=== PATIENT | female | born 1975 | race Caucasian/White ===

== ENCOUNTER 2020-11-21 11:34 | Outpatient (REF) | payer SELFPAY ==
--- NOTE | ~2020-11-21 | MM_ITS ---
EXAMINATION: MM SCREENING DIGITAL BREAST TOMOSYNTHESIS, BILATERAL CLINICAL INFORMATION: Screening. Asymptomatic. The lifetime risk of breast cancer based on the Tyrer-Cuzick Model is 11%. COMPARISON: Mammography: 11/15/2019, 11/08/2018 (baseline). TECHNIQUE: Digital breast tomosynthesis is performed in both the craniocaudal and mediolateral oblique views along with computer-aided detection (CAD). Synthesized 2D images are generated from the tomosynthesis. FINDINGS: There are scattered areas of fibroglandular density (ACR BI-RADS breast composition Category b). There are no significant masses, abnormal calcifications, or other abnormalities. No developing density. Parenchymal pattern similar to prior exams. MM/MM tomosynthesis screening BI IMPRESSION: No mammographic evidence of malignancy. ASSESSMENT: BI-RADS 1: Negative RECOMMENDATION: Routine annual mammography screening. This patient's information was entered into a reminder system with a target due date for their next mammogram.
== END 2020-11-21 11:35 | disposition home or self-care (01) ==
LOC: HO.MAMMO 11:34
PROVIDERS: Visit Provider Internal Medicine
DX: Z12.31 Encounter for screening mammogram for malignant neoplasm of breast (principal)
CPT/HCPCS: 77063; 77067

== ENCOUNTER 2021-05-04 12:46 | Outpatient (REF) | payer OTHER, SELFPAY ==
[2021-05-04 14:43] LABS: Alanine Aminotransferase 12 U/L (0-31); Anion Gap 13 (12-20); Aspartate Amino Transferase 21 U/L (5-31); Blood Urea Nitrogen 13 mg/dL (9-16); Calcium 9.1 mg/dL (8.4-10.2); Carbon Dioxide 23 mmol/L (22-29); Chloride 108 mmol/L (96-108); Cholesterol 213 mg/dL; Estimated Glomerular Filt Rate > 60; Glucose Fasting 76 mg/dL (60-99); HDL Cholesterol 63 mg/dL; LDL Cholesterol Calculated 132 mg/dl; Potassium 4.7 mmol/L (3.3-5.1); Sodium 139 mmol/L (135-145); Triglycerides 91 mg/dL
[2021-05-04 15:02] LABS: Vitamin D 25-OH Total 36.2 ng/mL (>30)
[2021-05-04 15:18] LABS: Folate 7.4 ng/mL (> or = 4.0); Vitamin B12 320 pg/mL (200-900)
[2021-05-05 08:37] LABS: HBc Num1 0.06 S/CO (0.00-0.79); HBsAGNum1 0.21 S/CO (0.00-0.99); Hepatitis B Core Antibody Nonreactive (Nonreactive); Hepatitis B Surface Antigen Negative (Negative); ~Hepatitis C Antibody Nonreactive (Nonreactive)
[2021-05-05 08:44] LABS: HBS Num1 > 1000.00 mIU/mL (0-7.99); HIV AB/AG Nonreactive (Nonreactive); HIV Num 1 0.06 S/CO (0.00-0.99); ~Hepatitis B Surface Antibody REACTIVE (Nonreactive)
[2021-05-09 16:17] LABS: HSV 1 IgM IFA Negative (Negative); HSV 2 IgM IFA Negative (Negative)
== END 2021-05-04 12:47 | disposition home or self-care (01) ==
LOC: HO.HMGCLDS 12:46
PROVIDERS: PCP Internal Medicine; Visit Provider Internal Medicine
DX: O24.419 Gestational diabetes mellitus in pregnancy, unspecified control (principal); O10.919 Unspecified pre-existing hypertension complicating pregnancy, unspecified trimester; Z86.19 Personal history of other infectious and parasitic diseases
CPT/HCPCS: 36415; 80048; 80061; 82306; 82607; 82746; 84450; 84460; 86695; 86696; 86704; 86706; 86803; 87340; 87389

== ENCOUNTER 2021-10-12 22:13 | Emergency (ER) | payer OTHER, SELFPAY ==
[2021-10-12 22:16] VITALS: BP 134/89; PULSE 65; RESP 20; TEMP 36.1; O2SAT 98; BMI 27.3
--- NOTE | 2021-10-12 22:40 | ED.PSYCH ---
HPI - Psych General Chief Complaint: Psychiatric Symptoms Stated Complaint: Crisis Source: patient Mode of arrival: ambulatory Limitations: no limitations History of Present Illness HPI Narrative: 46-year-old female presents for crisis evaluation. States that she relapsed after 20 months of being sober. Has been drinking alcohol, at least 10 drinks per day. Has had suicidal thoughts and severe depression for the past few months. MD complaint: suicidal ideation, feels depressed, anxiety and alcohol abuse Onset (ago): month(s) Duration: constant History of same: Yes Relieving factors: none Exacerbating factors: alcohol Context: recent alcohol abuse Associated psychiatric symptoms: depression and suicidal ideation Associated symptoms: denies other symptoms Treatments prior to arrival: none If self harm: admits thoughts of self harm Related Data Home Medications Medication Instructions Recorded Confirmed escitalopram oxalate 20 mg tablet 20 mg PO DAILY 05/04/21 10/12/21 Allergies Allergy/AdvReac Type Severity Reaction Status Date / Time No Known Allergies Allergy Verified 10/12/21 22:23 Review of Systems Review of Systems: Constitutional: No Fever, No Chills ENT/Mouth: No Ear Pain, No Nasal Congestion, No sore throat Eyes: No Eye Pain, No Swelling, No Redness Cardiovascular: No Chest Pain, No SOB Respiratory: No Cough, No Sputum, No Dyspnea Gastrointestinal: No Nausea, No Vomiting, No Diarrhea, No Hematochezia, No Melena Genitourinary: No Dysuria, No Urinary Frequency, No Hematuria Musculoskeletal: No Myalgias Skin: No Skin Lesions, No rash Neuro: No Weakness, No Numbness, No Paresthesias, No Dizziness, No Headache Psych: positive Anxiety, positive Depression, positive SI, positive alcohol abuse Heme/Lymph: No Lymphadenopathy Endocrine: No Polyuria, No Polydipsia Yes all other systems are reviewed and are negative [facility], [facility] Past Medical History Attestation statement: The following information was validated with the patient. Source: old records reviewed Medical History Alcohol abuse Bartholin gland cyst Depression Generalized anxiety disorder Gestational diabetes H/O cold sores Surgical History History of thyroglossal duct cyst removal Family History Family History Father Substance use disorder Mental health disorder Maternal Aunt Substance use disorder Mental health disorder Maternal Uncle Substance use disorder Mental health disorder Paternal Aunt Substance use disorder Mental health disorder Paternal Uncle Substance use disorder Mental health disorder Mother Mental health disorder Sister Mental health disorder Social History Social History Housing: House Patient Tobacco Use Status: Former Tobacco user Years Smoked: 3 yrs e-Cigarette/Vaping Use: Never Used Second Hand Smoke Exposure: No Advance Directives: No Advance Directives Information Provided: Yes Patient : No service: No Current occupational status: employed Current occupation: special education Current occupational exposures/hazards: No Physical Exam Vital Signs: Vital Signs: Last Vital Signs Temp 96.9 F 10/12/21 22:16 Pulse 65 10/12/21 22:16 Resp 20 10/12/21 22:16 BP 134/89 10/12/21 22:16 Pulse Ox 98 10/12/21 22:16 BMI result Body Mass Index 27.3 Appearance: Alert. Oriented X3. Moderate emotional distress. Crying. Eyes: Pupils equal, round and reactive to light. No nystagmus. Sclerae nonicteric. EOMI. ENT: Pharynx normal. Moist mucous membranes. Neck: Normal inspection. Neck supple. No JVD. CVS: Normal heart rate and rhythm. Apical pulses with focal to extremities. Respiratory: No respiratory distress. Breath sounds normal. Abdomen: Soft and nontender. Skin: Skin warm and dry. Normal skin color. Normal skin turgor. Extremities: No lower extremity edema. Gait well-balanced well coordinated. Neuro: No motor deficit. No sensory deficit. Cranial nerves 2-12 intact. Course Course Course Narrative: 46-year-old female presents for crisis evaluation for alcohol abuse, suicidal ideation, severe depression. States that she had been sober for 20 months, relapsed has been drinking approximately 10 drinks per day. Patient denies withdrawal symptoms, denies withdrawal seizures in the past. At this time severely depressed, can not stop crying, has concerns about her children watching her drink alcohol and being drunk. Will draw labs, EtOH, COVID, order for crisis consult. Section 12 at this time. 12:42 a.m. labs are unremarkable. Alcohol 211. Will place under physician observation at this time. Care team consult pending. MDM - Psych Differential Diagnosis Differential diagnosis: Likely suicidal ideation and alcohol intoxication Medical Records Attestation: I reviewed the patient's medical records. Lab Data Attestation: I reviewed the patient's lab results. Result diagrams: 10/12/21 23:43 10/12/21 23:43 Labs: Lab Results 10/12/21 10/12/21 10/12/21 Range/Units 22:33 23:19 23:19 WBC (4.8-10.8) X10*3/uL RBC (4.20-5.50) X10*6/uL Hgb (12.0-16.0) g/dl Hct (37.0-47.0) % MCV (80.0-98.0) fL MCH (27.0-33.0) pg MCHC (31.0-35.0) g/dl RDW (11.0-16.0) % Plt Count (160-400) X10*3/uL MPV (9.4-12.3) fL Immature Gran % (Auto) (0.0-0.4) % Neut % (Auto) (45-73) % Lymph % (Auto) (20-40) % [place] % (Auto) (2-11) % Eos % (Auto) (0-4) % Baso % (Auto) (0-2) % Lymph # (Auto) (1.2-4.9) X10*3/uL [place] # (Auto) (0.1-1.2) X10*3/uL Eos # (Auto) (0.0-0.4) X10*3/uL Baso # (Auto) (0.0-0.2) X10*3/uL Abs Immat Gran (auto) (0.00-0.03) X10*3/uL Absolute Neuts (auto) (2.0-8.3) x10*3/uL Absolute Nucleated RBC (0.0-0.012) X10*3/uL Nucleated RBC % (auto) (0.0-0.2) /100WBC Sodium (135-145) mmol/L Potassium (3.3-5.1) mmol/L Chloride (96-108) mmol/L Carbon Dioxide (22-29) mmol/L Anion Gap (12-20) BUN (9-16) mg/dL Creatinine (0.5-1.4) mg/dL Estim Creat Clear Calc Estimated GFR Random Glucose (60-115) mg/dL Calcium (8.4-10.2) mg/dL Total Bilirubin (0.0-1.0) mg/dL Direct Bilirubin (0.0-0.5) mg/dL AST (5-31) U/L ALT (0-31) U/L Alkaline Phosphatase (39-117) U/L Total Protein (6.5-8.0) g/dL Albumin (3.5-5.0) g/dL Lipase (8-78) U/L Urine Color STRAW Urine Appearance CLEAR Urine pH 5.5 (5.0-8.0) Ur Specific [place] <= 1.005 (1.005-1.025) Urine Protein NEG (NEG-TRACE) MG/DL Urine Glucose (UA) NEG (NEG) MG/DL Urine Ketones NEG (NEG) MG/DL Urine Blood NEG (NEG) Urine Nitrite NEG (NEG) Ur Leukocyte Esterase NEG (NEG) Urine RBC 0 (0) /HPF Urine WBC 0 (0-4) /HPF Ur Squamous Epith Cells TRACE /LPF Urine Bacteria NONE /LPF Urine Mucus TRACE /LPF Salicylates (15-30) mg/dL Urine Opiates Screen Not Detected (Not Detect) Urine Fentanyl Screen Not Detected (Not Detect) Acetaminophen (<30) mcg/mL Ur Barbiturates Screen Not Detected (Not Detect) Ur Phencyclidine Scrn Not Detected (Not Detect) Ur Amphetamines Screen Not Detected (Not Detect) U Benzodiazepines Scrn Not Detected (Not Detect) Urine Cocaine Screen Not Detected (Not Detect) U Marijuana (THC) Screen Not Detected (Not Detect) Ethyl Alcohol mg/dL COVID-19 ([facility]) Negative (Negative) COVID-19 Clin Com See Note 10/12/21 10/12/21 10/12/21 Range/Units 23:42 23:43 23:43 WBC 6.9 (4.8-10.8) X10*3/uL RBC 4.19 L (4.20-5.50) X10*6/uL Hgb 12.6 (12.0-16.0) g/dl Hct 38.5 (37.0-47.0) % MCV 91.9 (80.0-98.0) fL MCH 30.1 (27.0-33.0) pg MCHC 32.7 (31.0-35.0) g/dl RDW 13.6 (11.0-16.0) % Plt Count 330 (160-400) X10*3/uL MPV 10.5 (9.4-12.3) fL Immature Gran % (Auto) 0.4 (0.0-0.4) % Neut % (Auto) 50.4 (45-73) % Lymph % (Auto) 37.9 (20-40) % [place] % (Auto) 8.4 (2-11) % Eos % (Auto) 2.5 (0-4) % Baso % (Auto) 0.4 (0-2) % Lymph # (Auto) 2.6 (1.2-4.9) X10*3/uL [place] # (Auto) 0.6 (0.1-1.2) X10*3/uL Eos # (Auto) 0.2 (0.0-0.4) X10*3/uL Baso # (Auto) 0.0 (0.0-0.2) X10*3/uL Abs Immat Gran (auto) 0.03 (0.00-0.03) X10*3/uL Absolute Neuts (auto) 3.5 (2.0-8.3) x10*3/uL Absolute Nucleated RBC 0.000 (0.0-0.012) X10*3/uL Nucleated RBC % (auto) 0.0 (0.0-0.2) /100WBC Sodium (135-145) mmol/L Potassium (3.3-5.1) mmol/L Chloride (96-108) mmol/L Carbon Dioxide (22-29) mmol/L Anion Gap (12-20) BUN (9-16) mg/dL Creatinine (0.5-1.4) mg/dL Estim Creat Clear Calc Estimated GFR Random Glucose (60-115) mg/dL Calcium (8.4-10.2) mg/dL Total Bilirubin (0.0-1.0) mg/dL Direct Bilirubin (0.0-0.5) mg/dL AST (5-31) U/L ALT (0-31) U/L Alkaline Phosphatase (39-117) U/L Total Protein (6.5-8.0) g/dL Albumin (3.5-5.0) g/dL Lipase (8-78) U/L Urine Color Urine Appearance Urine pH (5.0-8.0) Ur Specific [place] (1.005-1.025) Urine Protein (NEG-TRACE) MG/DL Urine Glucose (UA) (NEG) MG/DL Urine Ketones (NEG) MG/DL Urine Blood (NEG) Urine Nitrite (NEG) Ur Leukocyte Esterase (NEG) Urine RBC (0) /HPF Urine WBC (0-4) /HPF Ur Squamous Epith Cells /LPF Urine Bacteria /LPF Urine Mucus /LPF Salicylates < 5.0 L (15-30) mg/dL Urine Opiates Screen (Not Detect) Urine Fentanyl Screen (Not Detect) Acetaminophen < 1 (<30) mcg/mL Ur Barbiturates Screen (Not Detect) Ur Phencyclidine Scrn (Not Detect) Ur Amphetamines Screen (Not Detect) U Benzodiazepines Scrn (Not Detect) Urine Cocaine Screen (Not Detect) U Marijuana (THC) Screen (Not Detect) Ethyl Alcohol 211 mg/dL COVID-19 ([facility]) (Negative) COVID-19 Clin Com 10/12/21 Range/Units 23:43 WBC (4.8-10.8) X10*3/uL RBC (4.20-5.50) X10*6/uL Hgb (12.0-16.0) g/dl Hct (37.0-47.0) % MCV (80.0-98.0) fL MCH (27.0-33.0) pg MCHC (31.0-35.0) g/dl RDW (11.0-16.0) % Plt Count (160-400) X10*3/uL MPV (9.4-12.3) fL Immature Gran % (Auto) (0.0-0.4) % Neut % (Auto) (45-73) % Lymph % (Auto) (20-40) % [place] % (Auto) (2-11) % Eos % (Auto) (0-4) % Baso % (Auto) (0-2) % Lymph # (Auto) (1.2-4.9) X10*3/uL [place] # (Auto) (0.1-1.2) X10*3/uL Eos # (Auto) (0.0-0.4) X10*3/uL Baso # (Auto) (0.0-0.2) X10*3/uL Abs Immat Gran (auto) (0.00-0.03) X10*3/uL Absolute Neuts (auto) (2.0-8.3) x10*3/uL Absolute Nucleated RBC (0.0-0.012) X10*3/uL Nucleated RBC % (auto) (0.0-0.2) /100WBC Sodium 140 (135-145) mmol/L Potassium 3.8 (3.3-5.1) mmol/L Chloride 110 H (96-108) mmol/L Carbon Dioxide 20 L (22-29) mmol/L Anion Gap 14 (12-20) BUN 11 (9-16) mg/dL Creatinine 0.72 (0.5-1.4) mg/dL Estim Creat Clear Calc 86.5 Estimated GFR > 60 Random Glucose 86 (60-115) mg/dL Calcium 8.7 (8.4-10.2) mg/dL Total Bilirubin 0.3 (0.0-1.0) mg/dL Direct Bilirubin 0.2 (0.0-0.5) mg/dL AST 20 (5-31) U/L ALT 17 (0-31) U/L Alkaline Phosphatase 45 (39-117) U/L Total Protein 6.5 (6.5-8.0) g/dL Albumin 4.0 (3.5-5.0) g/dL Lipase 20 (8-78) U/L Urine Color Urine Appearance Urine pH (5.0-8.0) Ur Specific [place] (1.005-1.025) Urine Protein (NEG-TRACE) MG/DL Urine Glucose (UA) (NEG) MG/DL Urine Ketones (NEG) MG/DL Urine Blood (NEG) Urine Nitrite (NEG) Ur Leukocyte Esterase (NEG) Urine RBC (0) /HPF Urine WBC (0-4) /HPF Ur Squamous Epith Cells /LPF Urine Bacteria /LPF Urine Mucus /LPF Salicylates (15-30) mg/dL Urine Opiates Screen (Not Detect) Urine Fentanyl Screen (Not Detect) Acetaminophen (<30) mcg/mL Ur Barbiturates Screen (Not Detect) Ur Phencyclidine Scrn (Not Detect) Ur Amphetamines Screen (Not Detect) U Benzodiazepines Scrn (Not Detect) Urine Cocaine Screen (Not Detect) U Marijuana (THC) Screen (Not Detect) Ethyl Alcohol mg/dL COVID-19 ([facility]) (Negative) COVID-19 Clin Com Discharge Plan Discharge Clinical Impression: Suicidal ideation, Alcohol abuse Depression Qualifiers: Depression Type: major depressive disorder Major depression recurrence: recurrent Active/Remission status: currently active Major depression episode severity: severe Psychotic features: with psychotic features Qualified Code(s): F33.3 - Major depressive disorder, recurrent, severe with psychotic symptoms Patient Disposition: Still a Patient Prescriptions: No Action escitalopram oxalate 20 mg tablet 20 mg PO DAILY RF: 0
[2021-10-12] MEDS: LORazepam 1 MG TABLET 2 MG PO (22:56)
[2021-10-12 23:15] LABS: COVID-19 Test Negative (Negative)
[2021-10-12 23:28] LABS: Appearance Urine CLEAR; Color Urine STRAW; Glucose Urine UA NEG (NEG); Leukocyte Esterase Urine NEG (NEG); Nitrite Urine NEG (NEG); PH 5.5 (5.0-8.0); Specific Gravity - Urine <= 1.005 (1.005-1.025); Urine Blood NEG (NEG); Urine Ketones NEG (NEG); Urine Protein NEG (NEG-TRACE)
[2021-10-12 23:37] LABS: Mucus Urine TRACE /LPF; RBC Urine 0 /HPF (0); Squamous Epithelial Cell Urine TRACE /LPF; WBC Urine 0 /HPF (0-4)
[2021-10-12 23:43] LABS: Amphetamine Screen Urine Not Detected (Not Detect); Barbiturates, Urine Not Detected (Not Detect); Benzodiazepines Screen Urine Not Detected (Not Detect); Cannabinoid Screen Urine Not Detected (Not Detect); Cocaine Screen Urine Not Detected (Not Detect); Fentanyl, urine Not Detected (Not Detect); Opiate Screen Urine Not Detected (Not Detect); Phencyclidine Screen Urine Not Detected (Not Detect)
[2021-10-12 23:53] LABS: MANUAL DIFF FLAG NO
[2021-10-12 23:55] LABS: Basophils Percent Auto 0.4 % (0-2); Eosinophils Absolute Auto 0.2 X10*3/uL (0.0-0.4); Eosinophils Percent Auto 2.5 % (0-4); Hematocrit 38.5 % (37.0-47.0); Hemoglobin 12.6 g/dl (12.0-16.0); Imm Gran Abs Auto 0.03 X10*3/uL (0.00-0.03); Imm Gran Pct Auto 0.4 % (0.0-0.4); Lymphocytes Absolute Auto 2.6 X10*3/uL (1.2-4.9); Lymphocytes Percent Auto 37.9 % (20-40); Mean Corpuscular HGB Conc 32.7 g/dl (31.0-35.0); Mean Corpuscular Hemoglobin 30.1 pg (27.0-33.0); Mean Corpuscular Volume 91.9 fL (80.0-98.0); Mean Platelet Volume 10.5 fL (9.4-12.3); Monocytes Absolute Auto 0.6 X10*3/uL (0.1-1.2); Monocytes Percent Auto 8.4 % (2-11); Neutrophils Absolute Auto 3.5 x10*3/uL (2.0-8.3); Neutrophils Percent Auto 50.4 % (45-73); Platelet Count 330 X10*3/uL (160-400); Red Blood Count 4.19 X10*6/uL (4.20-5.50); Red Cell Distribution Width 13.6 % (11.0-16.0); White Blood Count 6.9 X10*3/uL (4.8-10.8)
[2021-10-13 00:10] LABS: Ethanol 211 mg/dL
[2021-10-13 00:14] LABS: Alanine Aminotransferase 17 U/L (0-31); Alkaline Phosphatase 45 U/L (39-117); Anion Gap 14 (12-20); Aspartate Amino Transferase 20 U/L (5-31); Bilirubin Direct 0.2 mg/dL (0.0-0.5); Bilirubin Total 0.3 mg/dL (0.0-1.0); Blood Urea Nitrogen 11 mg/dL (9-16); Calcium 8.7 mg/dL (8.4-10.2); Carbon Dioxide 20 mmol/L (22-29); Chloride 110 mmol/L (96-108); Creatinine Clr Calc Pharmacy 86.5; Estimated Glomerular Filt Rate > 60; Glucose Random 86 mg/dL (60-115); Lipase 20 U/L (8-78); Potassium 3.8 mmol/L (3.3-5.1); Sodium 140 mmol/L (135-145); Total Protein 6.5 g/dL (6.5-8.0)
[2021-10-13 00:17] LABS: Salicylate < 5.0 mg/dL (15-30)
[2021-10-13 00:21] LABS: Acetaminophen LAB < 1 mcg/mL (<30)
--- NOTE | 2021-10-13 05:41 | PC.NURSE ---
Patient slept through the night, no distress observed/reported, asymptomatic of withdrawal, care team consult ordered, patient will be assessed in the morning, patient alert and oriented x4, coherent, medication compliant, VSS, will continue to monitor.
[2021-10-13 05:42] VITALS: BP 106/65; PULSE 89; RESP 15; TEMP 36.9; O2SAT 99
--- NOTE | 2021-10-13 07:03 | PC.NURSE ---
patient appears to remain asleep at present respirations are even and unlabored patient appears in no distress
[2021-10-13] MEDS: Escitalopram Oxalate 20 MG TABLET PO (11:12)
[2021-10-13] MEDS: LORazepam 1 MG TABLET 2 MG PO (11:32)
== END 2021-10-13 15:06 | disposition home or self-care (01) ==
PROVIDERS: Nurse Practitioner Family; Emergency Provider Internal Medicine; PCP Internal Medicine
DX: R45.851 Suicidal ideations (principal); F10.10 Alcohol abuse, uncomplicated; Y90.7 Blood alcohol level of 200-239 mg/100 ml; F33.3 Major depressive disorder, recurrent, severe with psychotic symptoms; F41.9 Anxiety disorder, unspecified; Z20.822 Contact with and (suspected) exposure to COVID-19
CPT/HCPCS: 36415; 80048; 80076; 80143; 80179; 80307; 81001; 82077; 83690; 85025; 87635; 99283; 99284

== ENCOUNTER 2022-07-30 15:02 | Outpatient (REF) | payer OTHER, SELFPAY ==
--- NOTE | ~2022-07-30 | XR_ITS ---
EXAMINATION: XR FOOT, RIGHT CLINICAL INFORMATION: Pain. COMPARISON: None TECHNIQUE: AP, lateral, and oblique views of the right foot. FINDINGS: Bony alignment and mineralization are normal. No fracture, dislocation or right ankle joint effusion is seen. Boehler's angle is normal. There is a moderate plantar calcaneal spur. No focal soft tissue swelling, gas or foreign body is seen. XR/XR foot RT 2V IMPRESSION: 1. No fracture, dislocation or right ankle joint effusion is seen. 2. There is a moderate plantar calcaneal spur.
== END 2022-07-30 15:03 | disposition home or self-care (01) ==
LOC: HO.HMGCX 15:02
PROVIDERS: PCP Internal Medicine; Visit Provider Internal Medicine
DX: M79.671 Pain in right foot (principal)
CPT/HCPCS: 73620

== ENCOUNTER → 2022-10-12 13:11 | Outpatient (BNVA) | payer OTHER, SELFPAY | PROVIDERS: PCP Internal Medicine; Visit Provider Nurse Practitioner Family | DX: Z13.89 Encounter for screening for other disorder (principal) ==

== ENCOUNTER 2023-03-30 12:19 | Day surgery (SDC) | payer OTHER, SELFPAY ==
--- NOTE | 2023-03-29 12:27 | P.CONAN_ITS ---
Documented by User: Juli Herrera NP 03/29/23 12:35 HPI - Anesthesia Eval Consult details Narrative: 47yo F for Colonoscopy Hx of ETOH abuse PMFSH Active Problems Active Problems: All Active Problems (Updated 07/29/22 @ 16:23 by Guerline Carmen MD) Family history of colon cancer in mother (Acute) Colon cancer screening (Acute) Pain of right heel (Acute) H/O cold sores (Acute) Gestational diabetes (Acute) Generalized anxiety disorder (Acute) Past Medical History Medical History Alcohol abuse Bartholin gland cyst Colon cancer screening Depression Family history of colon cancer in mother Generalized anxiety disorder Gestational diabetes H/O cold sores Pain of right heel Family History Family History Father Substance use disorder Mental health disorder Maternal Aunt Substance use disorder Mental health disorder Maternal Uncle Substance use disorder Mental health disorder Paternal Aunt Substance use disorder Mental health disorder Paternal Uncle Substance use disorder Mental health disorder Mother Mental health disorder Sister Mental health disorder Surgical History Surgical History History of thyroglossal duct cyst removal Social History Social History Housing: House Patient Tobacco Use Status: Former Tobacco user Years Smoked: 3 yrs e-Cigarette/Vaping Use: Never Used Second Hand Smoke Exposure: No Are you DNR?: No Advance Directives: No Advance Directives Information Provided: Yes Patient : No service: No Current occupational status: employed Current occupation: special education Current occupational exposures/hazards: No Cognitive needs: No Hearing needs: No Vision needs: No Meds Allergies Allergy/AdvReac Type Severity Reaction Status Date / Time No Known Allergies Allergy Verified 10/12/22 13:21 Home Medications Medication Instructions Recorded Confirmed Last Taken Type escitalopram oxalate 20 mg tablet mg PO 07/29/22 07/29/22 03/29/23 History lamotrigine 100 mg tablet 100 mg PO DAILY 07/29/22 03/28/23 03/30/23 History norethindrone 1 mg-ethinyl 1 tab PO DAILY 07/29/22 03/28/23 03/30/23 History estradiol 35 mcg tablet ([facility]) gabapentin 100 mg capsule 100 mg PO TID 03/30/23 03/30/23 03/30/23 History Exam Exam Date and Time: March 29, 2023 122 Assessment and Plan Assessment Anesthesia Assessment: Chart Reviewed Documented by User: Gloria Lozada MD 03/30/23 13:43 PMFSH Past Medical History Medical History Alcohol abuse Bartholin gland cyst Colon cancer screening Depression Family history of colon cancer in mother Generalized anxiety disorder Gestational diabetes H/O cold sores Pain of right heel Family History Family History Father Substance use disorder Mental health disorder Maternal Aunt Substance use disorder Mental health disorder Maternal Uncle Substance use disorder Mental health disorder Paternal Aunt Substance use disorder Mental health disorder Paternal Uncle Substance use disorder Mental health disorder Mother Mental health disorder Sister Mental health disorder Family history of problems with anesthesia: No Surgical History Surgical History History of thyroglossal duct cyst removal History of Problems with Anesthesia: No Social History Social History Housing: House Patient Tobacco Use Status: Former Tobacco user Years Smoked: 3 yrs e-Cigarette/Vaping Use: Never Used Second Hand Smoke Exposure: No Are you DNR?: No Advance Directives: No Advance Directives Information Provided: Yes Patient : No service: No Current occupational status: employed Current occupation: special education Current occupational exposures/hazards: No Cognitive needs: No Hearing needs: No Vision needs: No Meds Allergies Allergy/AdvReac Type Severity Reaction Status Date / Time No Known Allergies Allergy Verified 10/12/22 13:21 Home Medications Medication Instructions Recorded Confirmed Last Taken Type escitalopram oxalate 20 mg tablet mg PO 07/29/22 07/29/22 03/29/23 History lamotrigine 100 mg tablet 100 mg PO DAILY 07/29/22 03/28/23 03/30/23 History norethindrone 1 mg-ethinyl 1 tab PO DAILY 07/29/22 03/28/23 03/30/23 History estradiol 35 mcg tablet (Alyacen) gabapentin 100 mg capsule 100 mg PO TID 03/30/23 03/30/23 03/30/23 History Exam Airway Mallampati Class: II TM Dist: >3cm Neck ROM: Full Loose/Missing/Broken Teeth: No Heart: rr Lungs: cta Assessment and Plan Assessment Anesthesia Assessment: Anesthesia Plan Discussed Final Anesthetic Review Family History of Problems with Anesthesia: No History of Problems with Anesthesia: No NPO: Yes ASA Class: I Final Preanesthetic Review: No Changes in Pt Med Stat, Meds/Allgs Chart Review ed, Consent Obtained/Reviewed and Anes Risks/Benef Reviewed Patient Risk: Low Procedure Risk: Low Anesthetic Plan Anesthetic Plan: GA Disposition: Standard PACU
[2023-03-30] VITALS (9 sets, daily range): BP systolic 78–115; BP diastolic 42–70; PULSE 47–65; RESP 14–16; TEMP 36.2–36.4; O2SAT 97–100; BMI 30.6
[2023-03-30 13:15] LABS: UPreg QC Valid YES; Urine Pregnancy NEGATIVE (NEGATIVE)
[2023-03-30] MEDS: Lactated Ringers 1,000 ML 100 ML IVCONT (13:27)
--- NOTE | 2023-03-30 14:15 | MHC.SHP ---
Pre-Procedural Eval Section A Date of Service: 03/30/23 Section B Chief Complaint: screening Details of Present Illness: mother had colon polyps Relevant Family History (Specify if Yes): Yes Relevant Social History: None Present Medications: see Short Stay Collaborative assessment Medical History: Significant History (Alcohol abuse Bartholin gland cyst Colon cancer screening Depression Family history of colon polyps in mother Generalized anxiety disorder Gestational diabetes H/O cold sores Pain of right heel) History of Previous Operations: Relevant previous surgery/procedure and date(s) (History of thyroglossal duct cyst removal) Allergies: Allergies Allergy/AdvReac Type Severity Reaction Status Date / Time No Known Allergies Allergy Verified 10/12/22 13:21 Review of Systems Sugical H&P ROS: Negative: Constitution, Cardiovascular, Respiratory, Neurological, Psychiatric, Hem-Onc, Allergic/Immunologic, Gastrointestinal, Genitourinary, Musculoskeletal, Integumentary, Endocrine and Eyes/Ears/Nose/Throat Exam Surgical H&P Exam: Normal: HEENT, Normal: Heart, Normal: Lungs, Normal: Extremities, Normal: Abdomen, Normal: Skin and Normal: Neurological Plan Diagnosis/Plan: Unchanged I have reviewed the history and physical and performed a pertinent physical examination on my patient. No changes have occurred unless specified. Time Spent With Patient Time: Total time managing care of this patient today ____ minutes.
--- NOTE | 2023-03-30 14:17 | W.PM.OPN ---
Operative Note Operative Note Date of Service: 03/30/23 Narrative: Operative Information Procedure Description: Colonoscopy Indication: screening Anesthesia: MAC COLONOSCOPY Instrument: Olympus variable stiffness pediatric scope 190L Colonoscopy Monitoring: Vital signs and clinical assessment, continuous EKG monitoring, Pulse oximetry, Carbon Dioxide monitoring and blood pressure monitoring were done throughout the procedure. Colon withdrawal time was 8 minutes. Procedure: The patient was placed in the left lateral decubitis position and pre-procedure medications were administered. After a digital rectal examination of the ano-rectum, the video colonoscope was inserted into the rectum and advanced through the colon to the cecum/TI. The colonoscope was slowly withdrawn in a retrograde panoramic fashion and the colon mucosa was carefully examined including a retroflexed view of the rectum. Findings and interventions are described below. Procedure Difficulty: easy Findings: Terminal Ileum-normal Cecum:normal Ascending Colon: normal Transverse Colon -normal Descending Colon:normal Sigmoid Colon: normal Rectum: Retroflexion with small internal hemorrhoids, grade I Anorectum - normal Colon preparation: [place] Bowel Preparation Scale Right colon; 2 Transverse colon: 3 Left colon; 3 (0 = Unprepared colon segment with mucosa not seen due to solid stool that cannot be cleared. 1 = Portion of mucosa of the colon segment seen, but other areas of the colon segment not well seen due to staining, residual stool and/or opaque liquid. 2 = Minor amount of residual staining, small fragments of stool and/or opaque liquid, but mucosa of colon segment seen well. 3 = Entire mucosa of colon segment seen well with no residual staining, small fragments of stool or opaque liquid) Impression and Post Procedure Diagnosis: internal hemorrhoids Plan: High fiber diet leaflet Avoid straining at stool, epsom salts and sitz bath, anusol supps or cream Repeat Colonoscopy in 5 years due to FH of colon polyps or earlier if clinically indicated Above findings were reviewed with the patient and relevant handouts were provided if indicated.
== END 2023-03-30 15:49 | disposition home or self-care (01) ==
PROVIDERS: Nurse Practitioner; PCP Internal Medicine; Visit Provider Internal Medicine Gastroenterology
PROC: 0DJD8ZZ Inspection of Lower Intestinal Tract, Via Natural or Artificial Opening Endoscopic (ICD-10-PCS; CPT 45378; principal; 2023-03-30 14:10)
DX: Z12.11 Encounter for screening for malignant neoplasm of colon (principal); K64.0 First degree hemorrhoids
CPT/HCPCS: 45378; 81025

== ENCOUNTER 2023-04-15 07:57 | Outpatient (AMB) | payer OTHER, SELFPAY ==
--- NOTE | 2023-04-15 08:12 | A.OFFVIS_ITS ---
Intake Vital Signs 04/15/23 08:13 Height 5 ft 1 in Weight 154 lb 12.232 oz BMI 29.2 BP 108/70 Blood Pressure Location Lt brachial Position Sitting Pulse 66 Intake Visit Reasons: S/p colo-Lugo Intake Note: Dimple presents in office as a est.patient for a post-op for colo pt got it done 03.30.23 PT CC: pt reports having no concerns pt denies any other GI Issues General Practice Required: No Accompanied by: Self / Same As Patient Allergies No Known Allergies Allergy (Verified 04/15/23 08:12) HPI S/p colo-Lugo HPI Details LAST VISIT Colon cancer screening Patient denies any GI, cardiac or respiratory symptoms.? Denies any issues with anesthesia in the past.? Denies any history of sleep apnea.? No history infectious diseases in the past or present.? Not on any anticoagulation t herapy.? Family history of colon cancer. Patient mother was diagnosed with colorectal cancer.? Patient denies melena, hematochezia, unintentional weight loss or ribbon like stools.? Discussed at length the pre-procedure,? prep, diet & medications as well as what to expect prior, during and after the procedure.?? Stressed the importance of good bowel prep. ?Recommended the use of Vaseline or Calmoseptine OTC & baby wipes with bowel movements to promote comfort.? ?Patient verbalizes understanding and agrees to plan of care.? She was given the opportunity to ask questions and all questions answered.? We will see her after the procedure.? Plan Medications New bisacodyl (Dulcolax (bisacodyl)) take 2 tabs at noon the day before your colonoscopy 10 mg (2 x 5 mg) PO ONCE 1 day 2 tabs 0RF Z12.11 polyethylene glycol 3350 (Miralax) As directed by gastroenterology department at [facility] 238 grams PO ONCE 238 grams 0RF Z12.11 COLONOSCOPY Findings: Terminal Ileum-normal Cecum:normal Ascending Colon: normal Transverse Colon -normal Descending Colon:normal Sigmoid Colon:? normal Rectum: Retroflexion with small internal hemorrhoids, grade I Anorectum - normal Colon preparation: Mcarthur Bowel Preparation Scale Right colon; 2 Transverse colon: 3 Left colon; 3 (0 = Unprepared colon segment with mucosa not seen due to solid stool that cannot be cleared. 1 = Portion of mucosa of the colon segment seen, but other areas of the colon segment not well seen due to staining, residual stool and/or opaque liquid. 2 = Minor amount of residual staining, small fragments of stool and/or opaque liquid, but mucosa of colon segment seen well. 3 = Entire mucosa of colon segment seen well with no residual staining, small fragments of stool or opaque liquid) Impression and Post Procedure Diagnosis: internal hemorrhoids Plan: High fiber diet leaflet Avoid straining at stool, epsom salts and sitz bath, anusol supps or cream Repeat Colonoscopy in 5 years due to FH of colon polyps or earlier if clinically indicated TODAY'S VISIT Patient is here today for follow-up and to discuss colonoscopy results. Patient denies any ill effects from the prep, anesthesia or procedure itself. Patient states that she has been feeling well. Denies any GI concerning symptoms. Family history of colorectal cancer and colonoscopy recommendations are every 5 years regardless. Patient had normal colonoscopy to small internal hemorrhoids found. No polyps., no diverticulosis. PFSH Medical History Alcohol abuse Bartholin gland cyst Colon cancer screening Depression Family history of colon cancer in mother Generalized anxiety disorder Gestational diabetes H/O cold sores Pain of right heel Surgical History History of thyroglossal duct cyst removal Hx of colonoscopy Family History Father Substance use disorder Mental health disorder Maternal Aunt Substance use disorder Mental health disorder Maternal Uncle Substance use disorder Mental health disorder Paternal Aunt Substance use disorder Mental health disorder Paternal Uncle Substance use disorder Mental health disorder Mother Mental health disorder Sister Mental health disorder Social History Housing: House Patient Tobacco Use Status: Former Tobacco user Years Smoked: 3 yrs e-Cigarette/Vaping Use: Never Used Second Hand Smoke Exposure: No service: No Current occupational status: employed Current occupation: special education Current occupational exposures/hazards: No Cognitive needs: No Hearing needs: No Vision needs: No Review of Systems Const Denies weight gain and Denies weight loss ENT Reports no additional complaints, Denies dysphagia and Denies odynophagia Card Reports no additional complaints Resp Reports no additional complaints GI Denies abdominal pain, Denies belching, Denies melena, Denies bloating, Denies change in bowel habits, Denies dysphagia, Denies excessive flatus, Denies d yspepsia, Denies heartburn, Denies diarrhea, Denies loose stools, Denies nausea, Denies odynophagia and Denies vomiting Musc Reports no additional complaints Neuro Reports no additional complaints Psych Reports no additional complaints Endo Reports no additional complaints Physical Exam Vital Signs: Last Vital Signs Pulse 66 04/15/23 08:13 BP 108/70 04/15/23 08:13 BMI result Body Mass Index 29.2 Const General: healthy appearing, no acute distress and well developed Nutritional Appearance: well nourished Orientation/consciousness: patient oriented x3 HEENT Head: Yes normal to inspection, Yes normocephalic and Yes atraumatic Face and sinus: Yes normal facial exam Mouth: Normal oral and palatal mucosa present Throat: Yes posterior oropharynx normal, Yes tonsils normal and Yes uvula midline Eyes General: appearance normal, both eyes and all related structures Neck Neck: Yes normal visual inspection, Yes full ROM and Yes trachea midline Thyroid: Thyroid normal Resp Effort & Inspection: normal respiratory effort, able to speak in complete sentences, no tracheal deviation and symmetric chest movement Auscultation: clear to auscultation bilaterally Cardio Rate: regular rate Heart sounds: S1 normal heart sound present and S2 normal heart sound present GI Inspection: Yes normal to inspection and No distended Palpation (GI): Soft to palpation, not firm, nontender and No hepatosplenomegaly present Auscultation: normal bowel sounds General: Yes no CVA tenderness Back/Spine/Pelvis Back: no CVA tenderness Skin General skin exam: elasticity normal, turgor normal and dry skin Neuro General: patient oriented x3 Psych Appearance: grossly normal Mental Status: mental status grossly normal Speech and movement: Normal speech and movement present Affect: normal affect Assessment & Plan Assessment & Plan (1) Family history of colon cancer in mother: Code(s): Z80.0 - Family history of malignant neoplasm of digestive organs Plan: Colonoscopy every 5 years due to family history (2) Status post colonoscopy: Code(s): Z98.890 - Other specified postprocedural states Plan: Patient denies any ill effects from the prep, anesthesia or procedure itself. No polyps found, small internal hemorrhoids. No diverticulosis. Patient will return for colorectal screening in 5 years. It high-fiber diet recommended. Will give patient script for rectal so and she can use it on as needed basis. Patient will return to our office prn. She is agreeable to this plan and kelly coffman understanding of instructions. She was given the opportunity to ask questions and all questions answered. Thank you for allowing me to participate in her care Medications: New hydrocortisone 2.5% (Proctosol HC) 1 appl TX BID-QID PRN 30 grams 2RF hemorrhoids K64.9 - Unspecified hemorrhoids Coding Level of Care Code Est Pt Level 3 (90532) Diagnoses Family history of colon cancer in mother Z80.0 Status post colonoscopy Z98.890 Time Spent (min) 25 Comment 15 minutes spent with patient and additional 10 minutes spent reviewing her records
[2023-04-15 08:13] VITALS: BP 108/70; PULSE 66; BMI 29.2
== END 2023-04-15 08:32 | disposition home or self-care (01) ==
PROVIDERS: PCP Internal Medicine; Visit Provider Nurse Practitioner Family
DX: Z80.0 Family history of malignant neoplasm of digestive organs (principal); Z98.890 Other specified postprocedural states
CPT/HCPCS: 99213

== ENCOUNTER → 2023-04-15 07:57 | Outpatient (BNVA) | payer OTHER, SELFPAY | PROVIDERS: PCP Internal Medicine; Visit Provider Nurse Practitioner Family ==

== ENCOUNTER 2023-11-24 09:59 | Outpatient (AMB) | payer OTHER, SELFPAY ==
--- NOTE | 2023-11-24 10:03 | A.OFFPC_ITS ---
Vital Signs 11/24/23 10:13 Height 5 ft 1 in Weight 153 lb BMI 28.9 BP 108/70 Blood Pressure Location Lt brachial Position Sitting Pulse 60 Pulse Source Pulse Oximeter Pulse Oximetry (%) 98 Oxygen Delivery Method Room Air Intake Visit Reasons: Adult CPE Female 18-49 Intake Note: Pt is here today for her PE mammogram 11/21/20, papsmear 06/18/23, colonoscopy 03/30/23 Is last menstrual period known: Yes Last menstrual period: 11/15/23 Allergies No Known Allergies Allergy (Verified 11/24/23 15:14) Medication List - Last Reconciled 11/24/23 by Guerline Carmen MD escitalopram oxalate mg PO lamotrigine 100 mg PO DAILY norethindrone-ethin estradiol 1-35 mg-mcg (Alyacen) 1 tab PO DAILY valacyclovir 2,000 mg (2 x 1 gram) PO BID PRN valacyclovir 2,000 mg (2 x 1 gram) PO Q12H 1 day Tobacco use date assessed: 11/24/23 Dental Screening Dental Screen Date: 11/24/23 Did you have a dental visit in the last 12 months?: Yes Did you have a dental problem in the last 6 months where you did not have access to dental care?: Yes Was dental information given to patient?: Patient has dentist HPI Encounter for routine adult health examination 2 HPI Details 48-year-old lady here today for her phys ical exam. She is up-to-date with her screening colonoscopy done by Dr. Lugo March 2023 with normal findings. She goes to [facility] for her routine Pap and pelvic exam, done in 2022, but is overdue for screening mammogram. She has generalized anxiety disorder, now currently being followed by new provider, Dr. Vasiliy Arias in [place] who continued her on escitalopram, and lamotrigine. Complains of having had recurrent appearance of cold sores. Would like to see if she can get a prescription for Valtrex to take as needed. She has been having intermittent episodes of urinary stress and urge incontinence. This has been happening on and off now for the last several months. Denies any accompanying dysuria, abdominal or low back pain [facility] Medical History (Updated 11/24/23 @ 15:27 by Guerline Carmen MD) Urinary incontinence History of alcohol abuse Family history of colon cancer in mother Pain of right heel Depression Bartholin gland cyst Generalized anxiety disorder Gestational diabetes H/O cold sores Surgical History Hx of colonoscopy History of thyroglossal duct cyst removal Family History Father Substance use disorder Mental health disorder Maternal Aunt Substance use disorder Mental health disorder Maternal Uncle Substance use disorder Mental health disorder Paternal Aunt Substance use disorder Mental health disorder Paternal Uncle Substance use disorder Mental health disorder Mother Mental health disorder Sister Mental health disorder Social History Housing: House Patient Tobacco Use Status: Former Tobacco user Years Smoked: 3 yrs e-Cigarette/Vaping Use: Never Used Second Hand Smoke Exposure: No service: No Current occupational status: employed Current occupation: special education Current occupational exposures/hazards: No Cognitive needs: No Hearing needs: No Vision needs: No Female Reproductive History Menstrual Date of last menstrual period: 11/15/23 Questionnaire PHQ-9 Over the last 2 weeks, how often have you been bothered by any of the following problems? 1. Little interest or pleasure in doing things: not at all 2. Feeling down, depressed, or hopeless: not at all 3. Trouble falling or staying asleep, or sleeping too much: not at all 4. Feeling tired or having little energy: not at all 5. Poor appetite or overeating: not at all 6. Feeling bad about yourself - or that you are a failure or have let yourself or your family down: not at all 7. Trouble concentrating on things, such as reading the newspaper or watching television: not at all 8. Moving or speaking so slowly that other people could have noticed. Or the opposite - being so fidgety or restless that you have been moving around a lot more than usual: not at all 9. Thoughts that you would be better off or of hurting yourself in some way: not at all Total score: 0 Depression Screening Interpretation: Negative (Currently is being followed at [place] by a psychiatrist) Depression Screening Done: Yes 65229 - PHQ-9 Billing: Yes Source: Developed by Drs. William Farr, Morenita Leyva, Matias Gomez and colleagues, with an educational deyanira from [employer]. Thrive Questionnaire Date Thrive assessed: 11/24/23 I am a: Patient What is your living situation today?: I have a steady place to live Within the past 12 months, did the food you bought not last and you didn't have the money to get more?: Never true Within the past 12 months, did you worry whether your food would run out before you got money to buy more?: Never true Do you have trouble paying for medicines?: No Do you have trouble getting transportation to medical appointments?: No Do you have trouble paying your heating and electricity bill?: No Do you have trouble taking care of your child, family member or friend?: No Do you have trouble with day-to-day activities such as bathing, preparing meals, shopping, managing finances, etc.?: No Are you currently unemployed and looking for a job?: No Are you interested in more education?: No THRIVE Score: 0 AUDIT C Alcohol Use Questionnaire (AUDIT-C) 1. How often do you have a drink containing alcohol?: Never Total Score: 0 FRANCIS-7 AMB Questionnaire FRANCIS-7 Date FRANCIS - 7 assessed: 11/24/23 Feeling nervous, anxious, or on edge: 1 = Several days Not being able to stop or control worryin = Not at all Worrying too much about different things: 0 = Not at all Trouble relaxin = Several days Being so restless that it is hard to sit still: 0 = Not at all Becoming easily annoyed or irritable: 1 = Several days Feeling afraid as if something awful might happen: 0 = Not at all Total FRANCIS-7 score (0-4 normal; 5-9 mild; 10-14 moderate; 15-21 severe): 3 Source: Developed by Drs. William Farr, Morenita Leyva, Matias Gomez and colleagues, with an educational deyanira from [employer]. FRANCIS-7 Assessment Billing FRANCIS-7 Assessment Tool: FRANCIS-7 Assessment 67161 Review of Systems Const Reports no additional complaints Eyes Reports no additional complaints and Reports requires corrective lenses (Wears contact lenses) ENT Denies dysphagia Card Reports no additional complaints Resp Reports no additional complaints GI Denies abdominal pain, Denies melena, Denies bloating, Denies change in bowel habits, Denies dysphagia and Denies heartburn Denies difficulty voiding, Denies genital pruritis, Denies genital lesions, Denies menorrhagia, Denies nipple discharge, Denies dysmenorrhea, Reports urinary incontinence (Stress incontinence), Denies urinary hesitancy and Denies vaginal discharge Musc Reports no additional complaints Skin/Breast Details: Some light brown spots like mainly on her left cheek Denies breast skin changes, Denies breast pain, Denies breast mass and Denies nipple discharge Neuro Reports no additional complaints Psych Reports no additional complaints Endo Reports no additional complaints Flex/Lymph Reports no additional complaints Aller/Immun Reports no additional complaints Physical exam (Primary Care) Vital Signs: Last Vital Signs Pulse 60 11/24/23 10:13 BP 108/70 11/24/23 10:13 Pulse Ox 98 11/24/23 10:13 Oxygen Delivery Method Room Air 11/24/23 10:13 BMI result Body Mass Index 28.9 BMI Assessment/Plan discussion: High BMI High, discussed plan: lifestyle, weight reduction and dietary Tobacco/Smoking Status: Tobacco use Status Tobacco use date assessed 11/24/23 11/24/23 10:14 Patient Tobacco Use Status Former Tobacco user 11/24/23 10:03 e-Cigarette/Vaping Use Never Used 11/24/23 10:03 PHQ-9: PHQ-9 Score PHQ-9: Total score 0 11/24/23 10:24 Depression Screening Interpretation: Negative (Currently is being followed at [place] by a psychiatrist) Thrive Assessment: Date of Thrive Assessment Date Thrive assessed 11/24/23 11/24/23 10:24 Const General: cooperative, comfortable and no acute distress Nutritional Appearance: average body habitus Orientation/consciousness: patient oriented x3 HENMT Ears: hearing grossly normal bilaterally, external ears normal, TM's normal bilaterally and EAC's normal General nose exam: Normal external nose present Mouth: Normal oral and palatal mucosa present, oropharynx normal and moist mucous membranes Eyes General: appearance normal, both eyes and all related structures Conjunctivae: conjunctivae normal Pupils: Equal, round and reactive pupils present EOM: EOMs intact bilaterally Neck Neck: Yes full ROM, Yes no lymphadenopathy and Yes supple Thyroid: Thyroid normal Chest Breast/axilla palpation: normal palpation of the breasts Resp Effort & Inspection: normal respiratory effort and able to speak in complete sentences Auscultation: clear to auscultation bilaterally Cardio Rate: regular rate Rhythm: regular rhythm Heart sounds: S1 normal heart sound present and S2 normal heart sound present GI Inspection: Yes normal to inspection Palpation (GI): Soft to palpation, nontender and no masses Auscultation: normal bowel sounds Other: sees [place] [facility] , recently had her pap smear , requested copy of results Back/Spine/Pelvis Cervical Spine: cervical ROM normal Thoracic/Lumbar Spine: thoracic and lumbar spine normal to inspection Skin General skin exam: no rashes or lesions noted Neuro General: patient oriented x3, gait normal, tone normal, moves all extremities, Normal light touch and pain sensation and no focal motor deficits Cranial nerves: Yes Equal, round and reactive pupils present Cognition (Neuro): normal cognition Gait exam (Neuro): Normal gait present Motor exam (neuro): 5/5 motor strength present throughout Extrem General: Yes full ROM, Yes no joint enlargement, Yes no pedal edema and Yes no calf tenderness Psych Appearance: grossly normal Mental Status: mental status grossly normal Speech and movement: Normal speech and movement present Affect: normal affect Attitude: cooperative Thought process: Normal thought process present Assessment and Plan Assessment & Plan (1) Annual visit for general adult medical examination with abnormal findings: Code(s): Z00.01 - Encounter for general adult medical examination with abnormal findings Plan: Will check appropriate labs. Recommended dental visit every 6 months and regular eye exams, at least every 2 years. Take adequate calcium in diet and vitamin-D 3 at 2000 IU per cap once a day, in addition to weight-bearing exercises to help maintain good muscle tone and weight control currently sees a personal care home administrator. Instructed to do self-breast exam, and recommended to get yearly mammogram, ordered, up-to-date with her cervical cancer screening, goes to [facility] in [place]. Up-to-date with her screening colonoscopy done in by Dr. Lugo last year. Up-to-date with her Tdap, reminded to get her COVID booster and her flu shot (2) H/O cold sores: Code(s): Z86.19 - Personal history of other infectious and parasitic diseases Plan: Prescription sent for valacyclovir 1 g per tablet, to take 2 tablets every 12 hours for 1 dose as needed for acute episodes of cold sore, take it within the 1st 48 hours of appearance of symptoms. Advised also to take [id number] lysine supplements for prevention (3) Generalized anxiety disorder: Comment: Sees a therapist and psychiatrist Vasiliy Renner MD [phone] Code(s): F41.1 - Generalized anxiety disorder Plan: Currently being followed by psychiatrist in [place], doing well on escitalopram, and lamotrigine (4) Urinary incontinence: Code(s): R32 - Unspecified urinary incontinence Orders: Orders Lipid Panel Today F41.1 - Generalized anxiety disorder, O24.419 - Gestational diabetes mellitus in , unspecified control, Z00.01 - Encounter for general adult medical examination with abnormal findings, Z13.220 - Encounter for screening for lipoid disorders, Z86.19 - Personal history of other infectious and parasitic diseases MM tomosynthesis screening BI Today Z12.31 - Encounter for screening mammogram for malignant neoplasm of breast Vitamin D 25-OH Total Today F41.1 - Generalized anxiety disorder, O24.419 - Gestational diabetes mellitus in , unspecified control, Z00.01 - Encounter for general adult medical examination with abnormal findings, Z13.220 - Encounter for screening for lipoid disorders, Z86.19 - Personal history of other infectious and parasitic diseases Medications: New valacyclovir 2,000 mg (2 x 1 gram) PO Q12H 1 day 4 tabs 5RF Coding Level of Care Code Est Pt Prev Care 40-64y(96015) Diagnoses Annual visit for general adult medical examination with abnormal findings Z00.01 H/O cold sores Z86.19 Generalized anxiety disorder F41.1 Urinary incontinence R32 Additional Codes FRANCIS-7 Assessment Billing - FRANCIS-7 Assessment Tool: FRANCIS-7 Assessment 64094 ([id number])
[2023-11-24 10:13] VITALS: BP 108/70; PULSE 60; O2SAT 98; BMI 28.9
== END 2023-11-24 10:47 | disposition home or self-care (01) ==
PROVIDERS: PCP Internal Medicine; Visit Provider Internal Medicine
DX: Z00.00 Encounter for general adult medical examination without abnormal findings (principal); Z86.19 Personal history of other infectious and parasitic diseases; F41.1 Generalized anxiety disorder; R32 Unspecified urinary incontinence
CPT/HCPCS: 99396

== ENCOUNTER 2023-11-24 10:58 | Outpatient (REF) | payer OTHER, SELFPAY ==
[2023-11-24 13:17] LABS: MANUAL DIFF FLAG NO
[2023-11-24 13:23] LABS: Basophils Percent Auto 0.4 % (0-2); Eosinophils Absolute Auto 0.2 X10*3/uL (0.0-0.4); Eosinophils Percent Auto 2.2 % (0-4); Hematocrit 41.9 % (37.0-47.0); Hemoglobin 13.1 g/dl (12.0-16.0); Imm Gran Abs Auto 0.02 X10*3/uL (0.00-0.03); Imm Gran Pct Auto 0.2 % (0.0-0.4); Lymphocytes Absolute Auto 2.5 X10*3/uL (1.2-4.9); Lymphocytes Percent Auto 27.5 % (20-40); Mean Corpuscular HGB Conc 31.3 g/dl (31.0-35.0); Mean Corpuscular Hemoglobin 28.4 pg (27.0-33.0); Mean Corpuscular Volume 90.7 fL (80.0-98.0); Mean Platelet Volume 11.4 fL (9.4-12.3); Monocytes Absolute Auto 0.7 X10*3/uL (0.1-1.2); Neutrophils Absolute Auto 5.6 x10*3/uL (2.0-8.3); Neutrophils Percent Auto 61.7 % (45-73); Platelet Count 343 X10*3/uL (160-400); Red Blood Count 4.62 X10*6/uL (4.20-5.50); Red Cell Distribution Width 13.4 % (11.0-16.0); White Blood Count 9.1 X10*3/uL (4.8-10.8)
[2023-11-24 13:44] LABS: Cholesterol 180 mg/dL (<200); HDL Cholesterol 58 mg/dL (>40); LDL Cholesterol Calculated 107 mg/dL (<100); Triglycerides 78 mg/dL (<150)
[2023-11-24 13:52] LABS: Alanine Aminotransferase 21 U/L (0-31); Albumin Level 4.3 g/dL (3.5-5.0); Alkaline Phosphatase 56 U/L (39-117); Anion Gap 11 (12-20); Aspartate Amino Transferase 23 U/L (5-31); Bilirubin Total 0.4 mg/dL (0.0-1.0); Blood Urea Nitrogen 13 mg/dL (9-16); Calcium 9.3 mg/dL (8.4-10.2); Carbon Dioxide 27 mmol/L (22-29); Chloride 106 mmol/L (96-108); Estimated Glomerular Filt Rate > 60; Glucose Random 86 mg/dL (60-115); Potassium 4.5 mmol/L (3.3-5.1); Sodium 139 mmol/L (135-145); Total Protein 6.8 g/dL (6.5-8.0)
[2023-11-24 14:02] LABS: Vitamin D 25-OH Total 84.4 ng/mL (>30)
[2023-11-24 14:08] LABS: Thyroid Stimulating Hormone 0.81 uIU/mL (0.32-4.0)
== END 2023-11-24 10:59 | disposition home or self-care (01) ==
LOC: HO.HMGCLDS 10:58
PROVIDERS: PCP Internal Medicine; Referring Provider Psychiatry & Neurology Psychiatry; Visit Provider Internal Medicine
DX: Z00.01 Encounter for general adult medical examination with abnormal findings (principal); O24.419 Gestational diabetes mellitus in pregnancy, unspecified control; O99.340 Other mental disorders complicating pregnancy, unspecified trimester; F41.1 Generalized anxiety disorder; Z13.220 Encounter for screening for lipoid disorders; Z86.19 Personal history of other infectious and parasitic diseases; Z79.899 Other long term (current) drug therapy
CPT/HCPCS: 36415; 80053; 80061; 82306; 84443; 85025

== ENCOUNTER 2023-12-26 15:08 | Outpatient (REF) | payer OTHER, SELFPAY | END 2023-12-26 15:09 | disposition home or self-care (01) | LOC: HO.MAMMO 15:08 | PROVIDERS: PCP Internal Medicine; Visit Provider Internal Medicine | DX: Z12.31 Encounter for screening mammogram for malignant neoplasm of breast (principal) | CPT/HCPCS: 77063; 77067 ==

== ENCOUNTER → 2023-12-26 15:15 | Outpatient (BNV) | payer OTHER, SELFPAY | PROVIDERS: PCP Internal Medicine; Visit Provider Radiology Diagnostic Radiology | DX: Z12.31 Encounter for screening mammogram for malignant neoplasm of breast (principal) | CPT/HCPCS: 77063; 77067 ==

== ENCOUNTER 2024-11-27 12:32 | Outpatient (AMB) | payer BC, SELFPAY ==
--- NOTE | 2024-11-27 13:08 | A.OFFPC_ITS ---
Vital Signs 11/27/24 13:25 Height 5 ft Weight 100 lb 4 oz BMI 19.6 BP 110/74 Blood Pressure Location Lt brachial Position Sitting Respiration 15 Pulse 67 Pulse Source Pulse Oximeter Temp 98.1 F Temp Source Oral Pulse Oximetry (%) 97 Oxygen Delivery Method Room Air Intake Visit Reasons: Adult CPE Female 18-49 Intake Note: Pt is here today for her PE:last mammogram 12/26/23, papsmear 09/11/24 pascoag Allergies No Known Allergies Allergy (Verified 11/27/24 13:33) Medication List - Last Reconciled 11/27/24 by Guerline Carmen MD escitalopram oxalate mg PO lamotrigine 100 mg PO DAILY norethindrone-ethin estradiol 1-35 mg-mcg (Alyacen) 1 tab PO DAILY Tobacco use date assessed: 11/27/24 Dental Screening Dental Screen Date: 11/27/24 Did you have a dental visit in the last 12 months?: Yes Did you have a dental problem in the last 6 months where you did not have access to dental care?: No Was dental information given to patient?: Patient has dentist HPI Adult CPE Female 18-49 HPI Details 49-year-old lady with history of patient and anxiety currently followed by psychiatrist in [facility], stable and controlled on lamotrigine and escitalopram; has history of alcohol use disorder currently sober now for more than a year, attempts AA; has history of gestational diabetes, here today for her annual physical exam. She has been feeling well, currently up-to-date with her cervical cancer screening done 09/11/2024 at [place] by Dr. Odilia Thompson in her has also been prescribing her control pills. She is up-to-date with her screening mammogram done 12/26/2023 and already has an appointment for her screening mammogram this year on 12/31/24 She is up-to-date with her screening colonoscopy done in [address] Lugo, due for recheck in 5 years due to positive family history for colon cancer. She reports of mass that appears on her epigastric area whenever she does sit-ups. Has any pain over said area, no alteration in her bowel habits, no nausea or vomiting reported. [facility] Medical History (Updated 11/27/24 @ 13:56 by Guerline Carmen MD) Abdominal wall mass of epigastric region Hx gestational diabetes Urinary incontinence History of alcohol abuse Family history of colon cancer in mother Pain of right heel Depression Bartholin gland cyst Generalized anxiety disorder Gestational diabetes H/O cold sores Surgical History Hx of colonoscopy History of thyroglossal duct cyst removal Family History Father Substance use disorder Mental health disorder Maternal Aunt Substance use disorder Mental health disorder Maternal Uncle Substance use disorder Mental health disorder Paternal Aunt Substance use disorder Mental health disorder Paternal Uncle Substance use disorder Mental health disorder Mother Mental health disorder Sister Mental health disorder Social History Housing: House Patient Tobacco Use Status: Former Tobacco user Years Smoked: 3 yrs e-Cigarette/Vaping Use: Never Used Second Hand Smoke Exposure: No service: No Current occupational status: employed Current occupation: special education Current occupational exposures/hazards: No Cognitive needs: No Hearing needs: No Vision needs: No Female Reproductive History Menstrual control method: pills Other: Goes to her own OBGYN at [facility], Dr. Odilia Hunter Questionnaire PHQ-9 Over the last 2 weeks, how often have you been bothered by any of the following problems? 1. Little interest or pleasure in doing things: not at all 2. Feeling down, depressed, or hopeless: not at all 3. Trouble falling or staying asleep, or sleeping too much: not at all 4. Feeling tired or having little energy: not at all 5. Poor appetite or overeating: not at all 6. Feeling bad about yourself - or that you are a failure or have let yourself or your family down: not at all 7. Trouble concentrating on things, such as reading the newspaper or watching television: not at all 8. Moving or speaking so slowly that other people could have noticed. Or the opposite - being so fidgety or restless that you have been moving around a lot more than usual: not at all 9. Thoughts that you would be better off or of hurting yourself in some way: not at all Total score: 0 Depression Screening Interpretation: Negative Depression Screening Done: Yes 56708 - PHQ-9 Billing: Yes Source: Developed by Drs. William Farr, aMtias Tracey and colleagues, with an educational deyanira from [employer]. Thrive Questionnaire Date Thrive assessed: 11/27/24 I am a: Patient What is your living situation today?: I have a steady place to live Within the past 12 months, did the food you bought not last and you didn't have the money to get more?: Never true Within the past 12 months, did you worry whether your food would run out before you got money to buy more?: Never true Do you have trouble paying for medicines?: No Do you have trouble getting transportation to medical appointments?: No Do you have trouble paying your heating and electricity bill?: No Do you have trouble taking care of your child, family member or friend?: No Do you have trouble with day-to-day activities such as bathing, preparing meals, shopping, managing finances, etc.?: No Are you currently unemployed and looking for a job?: No Are you interested in more education?: No Please select the resources that you would like help with: None Currently or been in a relationship where the following occur: No concerns reported THRIVE Score: 0 AUDIT C Alcohol Use Questionnaire (AUDIT-C) 1. How often do you have a drink containing alcohol?: Never Total Score: 0 FRANCIS-7 AMB Questionnaire FRANCIS-7 Date FRANCIS - 7 assessed: 11/27/24 Feeling nervous, anxious, or on edge: 0 = Not at all Not being able to stop or control worryin = Not at all Worrying too much about different things: 0 = Not at all Trouble relaxin = Not at all Being so restless that it is hard to sit still: 0 = Not at all Becoming easily annoyed or irritable: 0 = Not at all Feeling afraid as if something awful might happen: 0 = Not at all Total FRANCIS-7 score (0-4 normal; 5-9 mild; 10-14 moderate; 15-21 severe): 0 Source: Developed by Morenita Childress Kurt Kroenke and colleagues, with an educational deyanira from [employer]. FRANCIS-7 Assessment Billing FRANCIS-7 Assessment Tool: FRANCIS-7 Assessment 68766 Review of Systems Const Reports no additional complaints Eyes Reports no additional complaints and Reports requires corrective lenses (Wears contact lenses) ENT Denies dysphagia Card Reports no additional complaints Resp Reports no additional complaints GI Denies abdominal pain, Denies melena, Denies bloating, Denies change in bowel habits, Denies dysphagia and Denies heartburn Details: Followed by Dr. Odilia Hunter Denies difficulty voiding, Denies genital pruritis, Denies genital lesions, Denies menorrhagia, Denies nipple discharge, Denies dysmenorrhea, Reports urinary incontinence (Stress incontinence), Denies urinary hesitancy and Denies vaginal discharge Musc Reports no additional complaints Skin/Breast Denies breast skin changes, Denies breast pain, Denies breast mass and Denies nipple discharge Neuro Reports no additional complaints Psych Reports no additional complaints Endo Reports no additional complaints Flex/Lymph Reports no additional complaints Aller/Immun Reports no additional complaints Physical exam (Primary Care) Vital Signs: Last Vital Signs Temp 98.1 F 11/27/24 13:25 Pulse 67 11/27/24 13:25 Resp 15 11/27/24 13:25 BP 110/74 11/27/24 13:25 Pulse Ox 97 11/27/24 13:25 Oxygen Delivery Method Room Air 11/27/24 13:25 BMI result Body Mass Index 19.6 Tobacco/Smoking Status: Tobacco use Status Tobacco use date assessed 11/27/24 11/27/24 13:10 Patient Tobacco Use Status Former Tobacco user 11/27/24 13:09 e-Cigarette/Vaping Use Never Used 11/27/24 13:09 PHQ-9: PHQ-9 Score PHQ-9: Total score 0 12/02/24 18:26 Depression Screening Interpretation: Negative Thrive Assessment: Date of Thrive Assessment Date Thrive assessed 11/27/24 11/27/24 13:10 Currently or been in a relationship where the following occur: No concerns reported Advance Care Planning discussion: Completed/Scanned Date of discussion: 11/27/24 Who was present: Patient Forms completed: Health Care Proxy Time spent: 16-45 minutes Actual minutes spent: 2 Const General: cooperative, comfortable and no acute distress Nutritional Appearance: average body habitus Orientation/consciousness: patient oriented x3 HENMT Ears: hearing grossly normal bilaterally, external ears normal, TM's normal bilaterally and EAC's normal General nose exam: Normal external nose present Mouth: Normal oral and palatal mucosa present, oropharynx normal and moist mucous membranes Eyes General: appearance normal, both eyes and all related structures Conjunctivae: conjunctivae normal Pupils: Equal, round and reactive pupils present EOM: EOMs intact bilaterally Neck Neck: Yes full ROM, Yes no lymphadenopathy and Yes supple Thyroid: Thyroid normal Chest Breast/axilla palpation: normal palpation of the breasts Resp Effort & Inspection: normal respiratory effort and able to speak in complete sentences Auscultation: clear to auscultation bilaterally Cardio Rate: regular rate Rhythm: regular rhythm Heart sounds: S1 normal heart sound present and S2 normal heart sound present GI Other: Soft fluctuant nontender mass appearing on epigastric area when she does sit ups Inspection: Yes normal to inspection Palpation (GI): Soft to palpation, nontender and no masses Auscultation: normal bowel sounds Other: sees [facility]-SWE[facility] DESIGN[facility] , recently had her pap smear , requested copy of results Back/Spine/Pelvis Cervical Spine: cervical ROM normal Thoracic/Lumbar Spine: thoracic and lumbar spine normal to inspection Skin General skin exam: no rashes or lesions noted Neuro General: patient oriented x3, gait normal, tone normal, moves all extremities, Normal light touch and pain sensation and no focal motor deficits Cranial nerves: Yes Equal, round and reactive pupils present Cognition (Neuro): normal cognition Gait exam (Neuro): Normal gait present Motor exam (neuro): 5/5 motor strength present throughout Extrem General: Yes full ROM, Yes no joint enlargement, Yes no pedal edema and Yes no calf tenderness Psych Appearance: grossly normal Mental Status: mental status grossly normal Speech and movement: Normal speech and movement present Affect: normal affect Attitude: cooperative Thought process: Normal thought process present Coding Level of Care Code Est Pt Prev Care 40-64y(40005) Diagnoses Generalized anxiety disorder F41.1 Encounter for counseling regarding advance directives Z71.89 Annual visit for general adult medical examination with abnormal findings Z00.01 Abdominal wall mass of epigastric region R19.06 Additional Codes FRANCIS-7 Assessment Billing - FRANCIS-7 Assessment Tool: FRANCIS-7 Assessment 53704 ([id number]) PHQ-9 - 44340 - PHQ-9 Billing: Yes ([id number]) Vital Signs *Quality* - Advance Care Planning discussion: Completed/Scanned ([id number]) Vital Signs *Quality* - Time spent: 16-45 minutes ([id number]) Assessment & Plan Assessment & Plan (1) Generalized anxiety disorder: Comment: Sees a therapist and psychiatrist Vasiliy Renner MD [phone] Code(s): F41.1 - Generalized anxiety disorder Category: Medical Plan: Currently followed by a psychiatrist in [place] stable controlled on escitalopram and lamotrigine (2) Encounter for counseling regarding advance directives: Code(s): Z71.89 - Other specified counseling Plan: Initiated the conversation about Advanced Directives. Advanced Directives help patients prepare for current and future decisions about their medical treatment and place of care. Discussed with patient that it is a process where a patients current condition and prognosis are reviewed, their wishes for information regarding their illness are elicited, and likely medical dilemmas are presented and options discussed. Healthcare proxy form completed today. The form can be amended as needed, reviewed yearly and make changes as needed (3) Annual visit for general adult medical examination with abnormal findings: Code(s): Z00.01 - Encounter for general adult medical examination with abnormal findings Plan: Will check appropriate labs. Recommended dental visit every 6 months and regular eye exams, at least every 2 years. Take adequate calcium in diet and vitamin-D 3 at 2000 IU per cap once a day, in addition to weight-bearing exercises to help maintain good muscle tone and weight control. Instructed to do self-breast exam, and is up-to-date with her yearly mammogram, and cervical cancer screening, go sees Dr. Odilia Hunter. Up-to-date with her Tdap, reminded to get her yearly flu vaccine and COVID booster. Up-to-date with her screening colonoscopy (4) Abdominal wall mass of epigastric region: Code(s): R19.06 - Epigastric swelling, mass or lump Category: Medical Plan: Ultrasound of abdomen limited ordered Orders: Orders Hemoglobin and Hematocrit 11/27/24 F41.1 - Generalized anxiety disorder, Z00.01 - Encounter for general adult medical examination with abnormal findings, Z13.220 - Encounter for screening for lipoid disorders, Z71.89 - Other specified counseling, Z86.32 - Personal history of gestational diabetes Aspartate Amino Transferase 11/27/24 F41.1 - Generalized anxiety disorder, Z00.01 - Encounter for general adult medical examination with abnormal findings, Z13.220 - Encounter for screening for lipoid disorders, Z71.89 - Other specified counseling, Z86.32 - Personal history of gestational diabetes Alanine Aminotransferase 11/27/24 F41.1 - Generalized anxiety disorder, Z00.01 - Encounter for general adult medical examination with abnormal findings, Z13.220 - Encounter for screening for lipoid disorders, Z71.89 - Other specified counseling, Z86.32 - Personal history of gestational diabetes Vitamin D 25-OH Total 11/27/24 F41.1 - Generalized anxiety disorder, Z00.01 - Encounter for general adult medical examination with abnormal findings, Z13.220 - Encounter for screening for lipoid disorders, Z71.89 - Other specified counseling, Z86.32 - Personal history of gestational diabetes Basic Metabolic Panel Fasting 11/27/24 F41.1 - Generalized anxiety disorder, Z00.01 - Encounter for general adult medical examination with abnormal findings, Z13.220 - Encounter for screening for lipoid disorders, Z71.89 - Other specified counseling, Z86.32 - Personal history of gestational diabetes Lipid Panel 11/27/24 F41.1 - Generalized anxiety disorder, Z00.01 - Encounter for general adult medical examination with abnormal findings, Z13.220 - Encounter for screening for lipoid disorders, Z71.89 - Other specified counseling, Z86.32 - Personal history of gestational diabetes
[2024-11-27 13:25] VITALS: BP 110/74; PULSE 67; RESP 15; TEMP 36.7; O2SAT 97; BMI 19.6
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
== END 2024-11-27 13:53 | disposition home or self-care (01) ==
PROVIDERS: PCP Internal Medicine; Visit Provider Internal Medicine
DX: F41.1 Generalized anxiety disorder (principal); Z71.89 Other specified counseling; Z00.01 Encounter for general adult medical examination with abnormal findings; R19.06 Epigastric swelling, mass or lump

== ENCOUNTER → 2024-11-27 12:32 | Outpatient (BNVA) | payer BC, SELFPAY | PROVIDERS: PCP Internal Medicine; Visit Provider Internal Medicine | DX: Z00.01 Encounter for general adult medical examination with abnormal findings (principal); F41.1 Generalized anxiety disorder; R19.06 Epigastric swelling, mass or lump; Z71.89 Other specified counseling | CPT/HCPCS: 96127 ==

== ENCOUNTER 2024-12-03 11:29 | Outpatient (REF) | payer BC, SELFPAY ==
[2024-12-03 13:16] LABS: Hematocrit 40.5 % (37.0-47.0); Hemoglobin 13.3 g/dl (12.0-16.0)
[2024-12-03 13:39] LABS: Alanine Aminotransferase 27 U/L (0-31); Anion Gap 12 (12-20); Aspartate Amino Transferase 24 U/L (5-31); Blood Urea Nitrogen 10 mg/dL (9-16); Calcium 8.4 mg/dL (8.4-10.2); Carbon Dioxide 26 mmol/L (22-29); Chloride 106 mmol/L (96-108); Cholesterol 167 mg/dL (<200); Estimated Glomerular Filt Rate > 60; Glucose Fasting 79 mg/dL (60-99); HDL Cholesterol 55 mg/dL (>40); LDL Cholesterol Calculated 100 mg/dL (<100); Potassium 3.5 mmol/L (3.3-5.1); Sodium 140 mmol/L (135-145); Triglycerides 60 mg/dL (<150)
--- OUTSIDE RECORDS SUMMARY | 2024-12-03 13:41 | XMS_ITS | Clinical Summary ---
Author Organization [facility] [address] [place] [address] [place] [phone] Phone Care Team Providers Care Tai Chi Instructor Name Role Phone Guerline Carmen MD Primary Care Provider [phone] Allergies Active Allergy Reactions Criticality Noted Date [...] anxiety 11/22/2011 Overview (08/07/2024): Hx of anorexia 5939-1681 Encounters Date Type Department Care Team Description 09/11/2024 3:45 PM EST Office Visit Obstetrics and Gynecology [address] [phone] Odilia Jo MD Encounter for gynecological examination [...] removal TONSILLECTOMY PROCEDURE: HISTORICAL TONSILLECTOMY APPENDECTOMY PROCEDURE: AR APPENDECTOMY OTHER SURGICAL HISTORY 2007 & 2015 Left PROCEDURE: AR I&D OF BARTHOLINS GLAND ABSCESS; COMMENT: Left [...] (09/09/2023) Cervical Cancer Screening: HPV Negative, Abstracted [facility] Provider HEALTH MAINTENANCE Final Result * HIV Screening (06/18/2022) Pathologist [facility] HIV Screening Abstracted [facility] Provider HEALTH MAINTENANCE Final Result * Hepatitis C Screening (06/18/2022) Pathologist [facility] Hepatitis C Screening Abstracted [facility] Provider HEALTH MAINTENANCE Final Result from Last 3 Months or Most Recently Relevant to Health Maintenance Insurance [facility] Care Teams Tai Chi Instructor Relationship Specialty Start Date End Date Guerline Carmen MD [address] [place] [address] PCP - General Internal Medicine 06/18/22
[2024-12-03 13:59] LABS: Vitamin D 25-OH Total 90.8 ng/mL (>30)
== END 2024-12-03 11:30 | disposition home or self-care (01) ==
LOC: HO.HMGCLDS 11:29
PROVIDERS: PCP Internal Medicine; Visit Provider Internal Medicine
DX: Z00.01 Encounter for general adult medical examination with abnormal findings (principal); F41.1 Generalized anxiety disorder; Z13.220 Encounter for screening for lipoid disorders; Z13.228 Encounter for screening for other metabolic disorders; Z86.32 Personal history of gestational diabetes; Z71.89 Other specified counseling
CPT/HCPCS: 36415; 80048; 80061; 82306; 84450; 84460; 85014; 85018

== ENCOUNTER 2024-12-24 09:48 | Outpatient (REF) | payer BC, SELFPAY ==
--- NOTE | ~2024-12-24 | US_ITS ---
CLINICAL HISTORY: R19.06 - Epigastric swelling, mass or lump ULTRASOUND ABDOMINAL WALL Comparison: None Findings: Targeted assessment of the area of clinical concern was performed. Valsalva maneuvers were performed. Multiple images are labeled ??? abdominal lump just above umbilicus. ??? A defect in the anterior abdominal wall is identified measuring 0.5 x 1.4 cm (Length x Width). There is an associated fat containing hernia. Impression: 1. Small midline supraumbilical ventral hernia appears to contain fat only. This document has been electronically signed by: Cathy Olivier DO on 12/24/2024 16:41:44
== END 2024-12-24 09:49 | disposition home or self-care (01) ==
LOC: HO.HMGCX 09:48
PROVIDERS: PCP Internal Medicine; Visit Provider Internal Medicine
DX: R19.06 Epigastric swelling, mass or lump (principal)
CPT/HCPCS: 76705

== ENCOUNTER → 2024-12-24 09:50 | Outpatient (BNV) | payer BC, SELFPAY | PROVIDERS: PCP Internal Medicine; Visit Provider Radiology Diagnostic Radiology | DX: K43.9 Ventral hernia without obstruction or gangrene (principal) | CPT/HCPCS: 76705 ==

== ENCOUNTER 2024-12-31 15:00 | Outpatient (REF) | payer BC, SELFPAY ==
--- OUTSIDE RECORDS SUMMARY | 2024-12-31 16:55 | XMS_ITS | Clinical Summary ---
Author Organization [facility] [address] [place] [address] Address [address] [facility] [place] [address] Phone Care Team Providers Care Speedboat Driver Name Role Phone Guerline Carmen MD Primary Care Provider [phone] Allergies Active Allergy Reactions Criticality Noted Date [...] anxiety 11/22/2011 Overview (08/07/2024): Hx of anorexia [id number] Immunizations Name Administration Dates Next Due H1N1 [...] removal TONSILLECTOMY PROCEDURE: HISTORICAL TONSILLECTOMY APPENDECTOMY PROCEDURE: CA APPENDECTOMY OTHER SURGICAL HISTORY 2007 & 2015 Left PROCEDURE: CA I&D OF [place] ABSCESS; COMMENT: Left [...] Results * Cervical Cancer Screening: HPV (09/09/2023) Pathologist [facility] Cervical Cancer Screening: HPV Negative, Abstracted [facility] Provider HEALTH MAINTENANCE Final Result * HIV Screening (06/18/2022) Pathologist [facility] HIV Screening Abstracted [facility] Provider HEALTH MAINTENANCE Final Result * Hepatitis C Screening (06/18/2022) Pathologist [facility] Hepatitis C Screening Abstracted [facility] Provider HEALTH MAINTENANCE Final Result from Last 3 Months or Most Recently Relevant to Health Maintenance Insurance [facility] Care Teams Speedboat Driver Relationship Specialty Start Date End Date Guerline Carmen MD [address] [place] [address] PCP - General Internal Medicine 06/18/22
== END 2024-12-31 15:01 | disposition home or self-care (01) ==
LOC: HO.MAMMO 15:00
PROVIDERS: PCP Internal Medicine; Visit Provider Internal Medicine
DX: Z12.31 Encounter for screening mammogram for malignant neoplasm of breast (principal)
CPT/HCPCS: 77063; 77067

== ENCOUNTER → 2024-12-31 15:00 | Outpatient (BNV) | payer BC, SELFPAY | PROVIDERS: PCP Internal Medicine; Visit Provider Internal Medicine | DX: Z12.31 Encounter for screening mammogram for malignant neoplasm of breast (principal) | CPT/HCPCS: 77063; 77067 ==